=== PATIENT | female | born 1950 | race Caucasian/White ===

== ENCOUNTER 2017-05-23 11:21 | Emergency (ER) | payer OTHER ==
[~2017-05-23] VITALS: Ht 157.5 cm; Wt 78.7 kg
[2017-05-23 11:26] VITALS: Ht 157.5 cm; Wt 78.7 kg
[2017-05-23] MEDS ORDERED: KETOROLAC 30 MG INJ IM STA (12:31)
[2017-05-23] MEDS ORDERED: ACETAMINOPHEN 500 MG TAB PO STA (12:32)
[2017-05-23 12:48] LABS: URINE BLOOD (Dip) POC Trace-lysed (NEGATIVE)
[2017-05-23] MEDS ORDERED: IBUP-1542 PO (13:09)
[2017-05-23] MEDS ORDERED: TRAM50TA2 PO (13:09)
[2017-05-23] MEDS ORDERED: CEPH-443 PO (13:10)
--- NOTE | 2017-05-23 13:31 | ERD ---
ER Documentation Chief Complaint Chief Complaint LOW BACK AND LWFT HIP PAIN HPI Patient is a 67-year-old male with a history of diabetes who presents ED for concerns of left-sided lower back pain and left-sided hip pain. Patient states she has had her pain for 3 weeks now however the pain became significantly worse today. Patient does state that the pain does radiate down her left leg. Patient does report doing housecleaning recently. Patient denies any falls, heavy lifting or trauma. Patient states she has difficulty sitting down and laying down flat secondary to the pain. Patient denies any saddle anesthesia, urinary incontinence, stool incontinence. Patient denies patient denies any fevers, chills, nausea, vomiting, chest pain, shortness of breath, abdominal pain or LOC. Patient reports taking meloxicam with no alleviation of symptoms. Patient requesting refill of ibuprofen 600 mg at this time. Patient denies any dysuria, frequency, urgency or hematuria. Patient states many years ago she did have a similar episode of lower back pain. Patient denies any headache , blurry vision, dizziness, lightheadedness. Patient is not taking her BP medications yet for the day. Patient reports taking lisinopril for her blood pressure. ROS All systems reviewed and are negative except as per history of present illness. Medications Home Meds Active Scripts Cephalexin* (Keflex*) 500 Mg Capsule, 500 MG PO TID for 7 Days, CAP Prov:ERAN CAMEJO PA-C 05/23/17 Ibuprofen* (Motrin*) 600 Mg Tab, 600 MG PO Q6, #20 TAB Prov:ERAN CAMEJO PA-C 05/23/17 Tramadol HCl (Tramadol HCl) 50 Mg Tablet, 50 MG PO Q4 Y for PAIN, #15 TAB Prov:ERAN CAMEJO PA-C 05/23/17 Physical Exam Vitals Vital Signs Date Time Temp Pulse Resp B/P Pulse Ox O2 Delivery O2 Flow Rate FiO2 05/23/17 13:52 98.2 83 20 179/81 97 Room Air 05/23/17 11:26 98.7 96 18 177/86 98 Physical Exam GENERAL: Well-developed, well-nourished female. HEAD: Normocephalic, atraumatic. EYES: Pupils are equally reactive bilaterally. EOMs grossly intact. No conjunctival erythema. ENT: Moist mucous membranes. No uvula deviation. No kissing tonsils. NECK: Supple. No meningismus. Normal range of motion of the neck. No cervical midline tenderness noted. LUNG: Clear to auscultation bilaterally. No rhonchi, wheezing, rales or coarse breath sounds. HEART: Regular rate and rhythm. No murmurs, rubs or gallops. BACK: No midline tenderness. Patient is tender to palpation in the left lumbar paraspinal muscles. Pain is reproducible. Patient refuses to lay down secondary to pain. No CVA tenderness noted bilaterally. EXTREMITIES: Equal pulses bilaterally. No peripheral clubbing, cyanosis or edema. No unilateral leg swelling. NEUROLOGIC: Alert and oriented. Moving all four extremities without any difficulty. Normal speech. Steady gait. SKIN: Normal color. Warm and dry. No rashes or lesions. Results 24 hrs Laboratory Tests Test 05/23/17 12:50 Bedside Urine pH (LAB) 6.0 Bedside Urine Protein (LAB) Negative Bedside Urine Glucose (UA) Negative Bedside Urine Ketones (LAB) Negative Bedside Urine Blood Trace-lysed Bedside Urine Nitrite (LAB) Negative Bedside Urine Leukocyte Esterase (L 1+ Current Medications Medications (Trade) Dose Ordered Sig/Johnny Route PRN Reason Start Time Stop Time Status Last Admin Dose Admin Ketorolac Tromethamine (Toradol) 30 mg ONCE STAT IM 05/23/17 12:31 05/23/17 12:33 DC 05/23/17 13:07 Acetaminophen (Tylenol Tab) 1,000 mg ONCE STAT PO 05/23/17 12:32 05/23/17 12:33 DC 05/23/17 13:05 Procedures/MDM MEDICAL DECISION MAKING: This is a 67-year-old female who presents with left-sided lower back pain down her hip as well as her leg 3 weeks. Patient states the pain became significantly worse today. Patient does report cleaning her house recently. Patient denies any trauma or falls. Patient denies any heavy lifting.. Vital signs were reviewed. Patient was afebrile. Patient denied any saddle anesthesia , urinary incontinence, bowel incontinence, night pain or recent trauma. Patient denies any falls or trauma, there is no indication for emergent x-ray imaging at this time. She denied any urinary symptoms including dysuria, frequency, urgency or hematuria. Urine did show 1+ leukocyte esterase. I will empirically treat the patient with a course of antibiotics at this time. At this time for the patient's presentation is most consistent with left-sided lower back pain with sciatica and UTI. Low suspicion for cauda equine syndrome , spinal fractures, epidural abscess, spinal metastases, osteomyelitis, aortic dissection, ruptured or leaking AA, pyelonephritis or nephrolithiasis. Low suspicion for hypertensive emergency or urgency. Patient did state that she did not take her blood pressure medication today. Patient was advised to take this medication upon returning home. Patient agreed with this plan. Patient was also advised to follow-up with her primary care physician in regard to her elevated blood pressures. PRESCRIPTIONS: Ibuprofen Tramadol DISCHARGE: At this time, patient is stable for discharge and outpatient management. RICE therapy and ROM exercises were advised to avoid stiffness. I have instructed the patient to follow-up with his/her primary care physician in 1-2 days. I have discussed with the patient the possibility of needing to see an recreation program specialist for further workup and imaging if the pain persists. I have instructed the patient to promptly return to the ER for any new or worsening symptoms including increased pain, swelling, warmth, urinary incontinence, stool incontinence, weakness or numbness. The patient and/or family expressed understanding of and agreement with this plan. All questions were answered. Home care instructions were provided. Patients blood pressure was elevated (>120/80) but appears stable without evidence of hypertensive emergency, hypertensive urgency or end-organ failure. I had discussion with the patient about the risks of hypertension. I have advised the patient to follow up with his/her primary care physician for outpatient monitoring and treatment for hypertension in 2-3 days. I have instructed the patient to return to the ER for any new or worsening symptoms including chest pain, shortness of breath, headache, blurred vision, confusion, nausea, vomiting or LOC. Disclaimer: Inadvertent spelling and grammatical errors are likely due to EHR/ dictation software use and do not reflect on the overall quality of patient care. Also, please note that the electronic time recorded on this note does not necessarily reflect the actual time of the patient encounter. Departure Diagnosis: Primary Impression: Lower back pain Chronicity: acute Back pain laterality: left Sciatica presence: with sciatica Sciatica laterality: sciatica of left side Qualified Code: M54.42 - Acute left-sided low back pain with left-sided sciatica Additional Impressions: Sciatica Laterality: left Qualified Code: M54.32 - Sciatica of left side UTI (urinary tract infection) Urinary tract infection type: site unspecified Hematuria presence: without hematuria Qualified Code: N39.0 - Urinary tract infection without hematuria, site unspecified Condition: Stable Patient Instructions: Understanding Urinary Tract Infections (UTIs), Back Pain W/ Sciatica Referrals: COMM[facility]ITY CLIN[facility] YOU HAVE RECEIVED A MEDICAL SCREENING EXAM AND THE RESULTS INDICATE THAT YOU DO NOT HAVE A CONDITION THAT REQUIRES URGENT TREATMENT IN THE EMERGENCY DEPARTMENT. FURTHER EVALUATION AND TREATMENT OF YOUR CONDITION CAN WAIT UNTIL YOU ARE SEEN IN YOUR DOCTORS OFFICE WITHIN THE NEXT 1-2 DAYS. IT IS YOUR RESPONSIBILITY TO MAKE AN APPOINTMENT FOR FOLOW-UP CARE. IF YOU HAVE A PRIMARY DOCTOR --you should call your primary doctor and schedule an appointment IF YOU DO NOT HAVE A PRIMARY DOCTOR YOU CAN CALL OUR PHYSICIAN REFERRAL HOTLINE AT IF YOU CAN NOT AFFORD TO SEE A PHYSICIAN YOU CAN CHOSE FROM THE FOLLOWING [facility] [address] [facility] [address] [facility] [facility] [address] [facility] [address] [facility] [address] [facility]. [facility] [address] [facility] YOU HAVE RECEIVED A MEDICAL SCREENING EXAM AND THE RESULTS INDICATE THAT YOU DO NOT HAVE A CONDITION THAT REQUIRES URGENT TREATMENT IN THE EMERGENCY DEPARTMENT. FURTHER EVALUATION AND TREATMENT OF YOUR CONDITION CAN WAIT UNTIL YOU ARE SEEN IN YOUR DOCTORS OFFICE WITHIN THE NEXT 1-2 DAYS. IT IS YOUR RESPONSIBILITY TO MAKE AN APPOINTMENT FOR FOLOW-UP CARE. IF YOU HAVE A PRIMARY DOCTOR --you should call your primary doctor and schedule and appointment IF YOU DO NOT HAVE A PRIMARY DOCTOR YOU CAN CALL OUR PHYSICIAN REFERRAL HOTLINE AT . IF YOU CAN NOT AFFORD TO SEE A PHYSICIAN YOU CAN CHOSE FROM THE FOLLOWING [facility]: [facility] [address] [place] [address] [facility] [address] [place] [address] [facility] [address] [place] [address] [facility] Hours: Mon-Fri 9:00 AM - 5:00 PM Additional Instructions: Do not take tramadol when operating any machinery or driving. Use heat to the affected area. Call your primary care doctor TOMORROW for an appointment during the next 1-2 days.See the doctor sooner or return here if your condition worsens before your appointment time. ERAN CAMEJO PA-C May 23, 2017 13:31
[2017-05-23 13:52] VITALS: BP 179/81; PULSE 83; RESP 20; TEMP 98.2
== END 2017-05-23 13:52 | disposition home or self-care (01) ==
LOC: FTE 11:21
DX: M54.42 Lumbago with sciatica, left side (principal); N39.0 Urinary tract infection, site not specified
CPT/HCPCS: 81003; 96372; 99284; J1885